=== PATIENT | male | born 1945 | race Caucasian/White ===

== ENCOUNTER → 2017-07-21 | Outpatient (CLI) | payer OTHER | LOC: BRMIMAGING 09:41 | DX: Z13.820 Encounter for screening for osteoporosis (principal); M81.0 Age-related osteoporosis without current pathological fracture; C34.31 Malignant neoplasm of lower lobe, right bronchus or lung ==

== ENCOUNTER → 2017-07-28 | Outpatient (CLI) | payer OTHER | LOC: FIMAGING 07:33 | PROVIDERS: ATTEND Internal Medicine Hematology & Oncology | DX: C41.9 Malignant neoplasm of bone and articular cartilage, unspecified (principal); M48.54XD Collapsed vertebra, not elsewhere classified, thoracic region, subsequent encounter for fracture with routine healing | CPT/HCPCS: 78306; A9503 ==